=== PATIENT | female | born 1935 | race Caucasian/White ===

== ENCOUNTER 2016-09-08 08:25 | Day surgery (SDC) | payer OTHER ==
[2016-09-08 08:59] VITALS: BP 140/63; PULSE 71; BMI 19.5
[2016-09-08] MEDS ORDERED: ACETAMINOPHEN 325 MG TABLET (FP) PO ONE (09:45)
[2016-09-08] MEDS ORDERED: ZOLEDRONIC ACID/MAN/WATER 100 ML IVPB ONE (10:00)
== END 2016-09-08 11:06 | disposition home or self-care (01) ==
LOC: FINFUSION 08:25 → FM/S 08:26 → FINFUSION 10:38
PROVIDERS: ATTEND Specialist
PROC: 3E033GC Introduction of Other Therapeutic Substance into Peripheral Vein, Percutaneous Approach (ICD-10-PCS; principal; 2016-09-08)
DX: M81.0 Age-related osteoporosis without current pathological fracture (principal)
CPT/HCPCS: 96365; J3489

== ENCOUNTER 2020-02-12 04:50 | Day surgery (SDC) | payer OTHER, MEDICARE ==
[2020-02-12] MEDS ORDERED: ACETAMINOPHEN 325 MG TABLET (FP) ONE (09:42)
[2020-02-12] MEDS ORDERED: ACETAMINOPHEN 325 MG TABLET (FP) PO ONE (10:00)
[2020-02-12] MEDS ORDERED: ZOLEDRONIC ACID/MAN/WATER 5 MG/100 ML INFUS..BTL IVPB ONE (10:00)
[2020-02-12 10:57] VITALS: PULSE 62
[2020-02-12 12:37] VITALS: BP 138/70; TEMP 97.5
== END 2020-02-12 12:35 | disposition home or self-care (01) ==
LOC: JCHEMO 04:50
PROVIDERS: ATTEND Specialist
PROC: 3E033GC Introduction of Other Therapeutic Substance into Peripheral Vein, Percutaneous Approach (ICD-10-PCS; principal; 2020-02-12)
PROC: 3E033GC Introduction of Other Therapeutic Substance into Peripheral Vein, Percutaneous Approach (ICD-10-PCS; 2020-02-12)
DX: M81.0 Age-related osteoporosis without current pathological fracture (principal); M35.3 Polymyalgia rheumatica
CPT/HCPCS: 96365; 96366; J3489